=== PATIENT | male | born 1990 | race Caucasian/White ===

== ENCOUNTER 2022-07-27 10:13 | Emergency (ER) | payer OTHER, SELFPAY ==
--- NOTE | 2022-07-27 10:15 | ED.BACK ---
HPI - Back Pain/Injury General Chief Complaint: Back Pain/Injury Stated Complaint: sciatica Time Seen by Provider: 07/27/22 10:15 Source: patient Mode of arrival: ambulatory Limitations: no limitations History of Present Illness HPI Narrative: Paul is a 32-year-old male patient presenting to the clinic today with complaints of possible sciatica. He reports he he said symptoms for over a week. He was seen by his PCP and given a steroid injection and states that this only helped for about 2 hours. Reports pain over the right SI joint and radiating down the right leg. No history of injury. States the pain is worse with walking and in the morning upon awakening. Rates his pain currently 8/10. He denies any saddle anesthesia or loss of bowel or bladder Related Data Home Medications Medication Instructions Recorded Confirmed cyclobenzaprine 10 mg tablet 10 mg PO TID 07/27/22 07/27/22 folic acid 1 mg tablet 1 mg PO DIRECTED 07/27/22 07/27/22 naltrexone 50 mg tablet 50 mg PO DAILY 07/27/22 07/27/22 sertraline 25 mg tablet 25 mg PO DAILY 07/27/22 07/27/22 sertraline 50 mg tablet 50 mg PO DAILY 07/27/22 07/27/22 thiamine mononitrate (vit B1) 100 100 mg PO DAILY 07/27/22 07/27/22 mg tablet (Vitamin B-1 (mononitrate)) Allergies Allergy/AdvReac Type Severity Reaction Status Date / Time Penicillins Allergy Other Verified 07/27/22 10:19 Review of Systems Review of Systems: Pertinent positives per HPI. Patient denies any fever, chills, rash, headache, visual changes, dizziness, cough, runny nose, sore throat, shortness of breath, chest pain, palpitations, nausea, vomiting, diarrhea, constipation, abdominal pain, or any urinary issues. PMFSH Social History Social History Smoking status: Never smoker Alcohol intake: current Substance use: never Comments At the time of my signature, I reviewed and agree with the nursing past medical, surgical, social, and family history. There is no relevant family history pertinent to the patient complaint. Exam Narrative: General: Well-developed, well nourished, in no apparent distress Head: Normocephalic, atraumatic. Cardio: Regular rate and rhythm, s1 and s2 normal, no murmur appreciated. Resp: Clear to auscultation bilaterally, no rhonchi, rales, wheezing or rubs. Musculoskeletal: No deformity, tender to palpation over the right SI joint, straight leg test positive at approximately 60? with pain over the posterior hip, negative foot drop, patellar reflexes 2+ bilaterally, grossly normal range of motion, muscle strength strong and equal, peripheral pulse strong, no edema, no cyanosis, normal gait and station Course Course Emergency Course: Portions of this record may have been created with voice recognition software. Level of Care: Express Care Visit Vital Signs Vital signs: Vital Signs Temperature 37.0 C 07/27/22 10:21 Pulse Rate 79 07/27/22 10:21 Respiratory Rate 16 07/27/22 10:21 Blood Pressure 172/110 H 07/27/22 10:21 Pulse Oximetry 100 07/27/22 10:21 Oxygen Delivery Room Air 07/27/22 10:21 Temperature 37.0 C 07/27/22 10:22 Pulse Rate 79 07/27/22 10:22 Respiratory Rate 16 07/27/22 10:22 Blood Pressure 155/97 H 07/27/22 10:43 Pulse Oximetry 100 07/27/22 10:22 Oxygen Delivery Room Air 07/27/22 10:22 Vital signs reviewed MDM - Back Pain/Injury MDM Narrative Medical decision making narrative: At the time of visit patient is resting comfortably on exam table. I suspect the patient has SI joint dysfunction/right-sided sciatica. Toradol 60 mg IM given in the clinic today and I will have him take a 10 day taper dose of prednisone. Supportive measures were discussed with the patient discussed sciatica/SI joint exercises to perform at home. He voiced understanding and is agreeable to the treatment plan. Blood pressure was initially 172/110 prior to getting Tor
[2022-07-27 10:21] VITALS: BP 172/110; PULSE 79; RESP 16; TEMP 37; O2SAT 100
[2022-07-27 10:22] VITALS: BP 172/110; PULSE 79; RESP 16; TEMP 37; O2SAT 100
[2022-07-27] MEDS: KETOROLAC (*BKC) 60 MG/2 ML VIAL IM (10:34)
[2022-07-27 10:41] VITALS: BP 155/97
[2022-07-27 10:43] VITALS: BP 155/97
== END 2022-07-27 10:41 | disposition home or self-care (01) ==
PROVIDERS: Emergency Provider Nurse Practitioner Family
DX: M54.32 Sciatica, left side (principal); M53.3 Sacrococcygeal disorders, not elsewhere classified
CPT/HCPCS: 96372; 99213; G0463; J1885

== ENCOUNTER 2023-11-11 08:11 | Emergency (ER) | payer OTHER, SELFPAY ==
[2023-11-11 08:24] VITALS: BP 119/81; PULSE 84; RESP 14; TEMP 36.8; O2SAT 99
[2023-11-11 08:27] VITALS: BP 119/81; PULSE 84; RESP 14; TEMP 36.8; O2SAT 99
--- NOTE | 2023-11-11 08:32 | ED.LOWEXIN ---
HPI - Extremity Injury (Lower) General Chief Complaint: Extremity Injury, Lower Stated Complaint: R FOOT INJURY Time Seen by Provider: 11/11/23 08:32 Source: patient, RN notes reviewed and old records reviewed Mode of arrival: ambulatory Limitations: no limitations History of Present Illness HPI Narrative: 33-year-old male presents to the [facility] with right lateral foot pain since last night. Mild bruising and swelling noted. Patient states that he fell landing on his foot. No treatment prior to arrival Onset (ago): day(s) (1) Related Data Home Medications Medication Instructions Recorded Confirmed No Home Medications 11/11/23 11/11/23 Allergies Allergy/AdvReac Type Severity Reaction Status Date / Time cefaclor [From Ceclor] Allergy Unknown Verified 11/11/23 08:25 Penicillins Allergy Other Verified 07/27/22 10:19 Sulfa (Sulfonamide Allergy Unknown Verified 11/11/23 08:25 Antibiotics) Review of Systems Review of Systems: All systems reviewed & are unremarkable except as noted in HPI and below Constitutional: Constitutional: Reports no additional constitutional complaints Eyes: Eyes: Reports no additional eye complaints ENT: Reports system reviewed and no additional complaints, except as documented Cardiovascular: Cardiovascular: Reports no additional cardiovascular complaints, Denies chest pain and Denies dyspnea Respiratory: Respiratory: Reports no additional respiratory complaints, Denies chest congestion, Denies cough and Denies dyspnea Gastrointestinal: Gastrointestinal: Reports no additional gastrointestinal complaints, Denies abdominal pain, Denies nausea and Denies vomiting Musculoskeletal: Musculoskeletal: Reports as per HPI Integumentary/Breasts: Skin/Breast: Reports system reviewed and no additional complaints, except as docu Neurologic: Reports system reviewed and no additional complaints, except as documented Psychiatric: Psychiatric: Reports no additional psychiatric complaints Allergic/Immunologic: Allergic/Immunologic: Reports no additional allergic/immunologic complaints [facility] Past Medical History Medical History Foot drop Started December 2022 Surgical History Surgical History H/O laminectomy L5 01/10 Social History Social History Smoking status: Never smoker Alcohol intake: current Substance use: never Comments At the time of my signature, I reviewed and agree with the nursing past medical, surgical, social, and family history. There is no relevant family history pertinent to the patient complaint. Exam Const: General: cooperative, healthy appearing, comfortable, no acute distress, well developed, alert and well nourished Nutritional Appearance: well nourished Orientation/consciousness: patient oriented x3 Limitations: no limitations HENMT: Head: normal to inspection Ears: hearing grossly normal bilaterally and external ears normal Face/Nose/Sinus: Normal external nose present, Normal nares present, Normal nasal mucous membranes and turbinates present, normal facial exam and face symmetric Face and sinus: normal facial exam and face symmetric Eyes: General: appearance normal, both eyes and all related structures Alignment and Position: alignment normal Periorbital: periorbital findings normal Pupils: Equal, round and reactive pupils present EOM: EOMs intact bilaterally Neck: Neck: normal visual inspection, full ROM, no lymphadenopathy and no meningeal signs Chest: Chest palpation & inspection: normal inspection of the chest Resp: Effort & Inspection: normal respiratory effort and able to speak in complete sentences Cardio: Rate: regular rate Rhythm: regular rhythm Skin: General skin exam: normal color and no rashes or lesions noted Lesions: no lesions Rashes: no rashes Trauma: no lacer
== END 2023-11-11 09:09 | disposition home or self-care (01) ==
PROVIDERS: Emergency Provider Nurse Practitioner
DX: S90.31XA Contusion of right foot, initial encounter (principal); W19.XXXA Unspecified fall, initial encounter
CPT/HCPCS: 73630; 99213; G0463